=== PATIENT | male | born 2000 | race Two or more races ===

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

== ENCOUNTER 2022-08-13 01:58 | Emergency (ER) | payer SELFPAY ==
[2022-08-13] MEDS ORDERED: Ipratropium/Albuterol 3 ML NEB ONE (03:35)
[2022-08-13] MEDS ORDERED: predniSONE 20 MG TAB ONE (03:35)
[2022-08-13] MEDS ORDERED: Acetaminophen 500 MG TAB ONE (03:35)
== END 2022-08-13 06:14 | disposition home or self-care (01) ==
LOC: ERS 01:58
DX: J45.909 Unspecified asthma, uncomplicated (principal)
CPT/HCPCS: 71045; 93005; J7512; J7620